=== PATIENT | male | born 1965 ===

== ENCOUNTER 2018-06-07 20:27 | Emergency (ER) | payer SELFPAY ==
--- NOTE | 2018-06-07 20:54 | ED PDOC ---
Arrival/HPI - General Chief Complaint: Alcohol Ingestion Time Seen by Provider: 06/07/18 20:33 - History of Present Illness Narrative History of Present Illness (Text): 06/07/18 20:55 A 52 year old male, whose past medical history includes EtOH abuse, biba to the emergency department for public intoxication. Patient admits to drinking tonight and states he wants to sleep. Patient denies any other complaints at this time. Past Medical History - Provider Review Nursing Documentation Reviewed: Yes - Infectious Disease Hx of Infectious Diseases: None - Psychiatric Hx Substance Use: No - Anesthesia Hx Anesthesia: No Family/Social History - Physician Review Nursing Documentation Reviewed: Yes Family/Social History: No Known Family HX Smoking Status: Never Smoked Hx Alcohol Use: Yes Frequency of alcohol use: Socially Hx Substance Use: No Allergies/Home Meds Allergies/Adverse Reactions: Allergies No Known Allergies Allergy (Verified 06/07/18 20:32) Home Medications: Home Meds Medication Instructions Recorded Confirmed No Known Home Med 06/07/18 06/07/18 Review of Systems - Physician Review All systems were reviewed & negative as marked: Yes - Review of Systems Constitutional: absent: Fevers, Night Sweats Respiratory: absent: SOB Cardiovascular: absent: Chest Pain Physical Exam Appearance: Positive for: Other (intoxicated) Mental Status: Positive for: Alert and Oriented X 3 - Systems Exam Head: Present: Atraumatic, Normocephalic Pupils: Present: PERRL Extroacular Muscles: Present: EOMI Conjunctiva: Present: Normal Mouth: Present: Moist Mucous Membranes Neck: Present: Normal Range of Motion Respiratory/Chest: Present: Clear to Auscultation, Good Air Exchange. No: Respiratory Distress, Accessory Muscle Use Cardiovascular: Present: Regular Rate and Rhythm, Normal S1, S2. No: Murmurs Abdomen: No: Tenderness, Distention, Peritoneal Signs Back: Present: Normal Inspection Upper Extremity: Present: Normal Inspection. No: Cyanosis, Edema Lower Extremity: Present: Normal Inspection. No: Edema Neurological: Present: GCS=15, CN II-XII Intact, Speech Normal Skin: Present: Warm, Dry, Normal Color. No: Rashes Psychiatric: Present: Alert, Oriented x 3, Intoxicated Medical Decision Making ED Course and Treatment: 06/07/18 20:55 Impression: 52 year old male with public intoxication. No acute findings on examination except that patient is intoxicated. Plan: -- Reassess and disposition Progress Notes: 06/07/18 22:19 Patient's family arrived and is ready to bring him home and assume care. - Scribe Statement The provider has reviewed the documentation as recorded by the Scout Monique Provider Scribe Attestation: All medical record entries made by the Scribe were at my direction and personally dictated by me. I have reviewed the chart and agree that the record accurately reflects my personal performance of the history, physical exam, medical decision making, and the department course for this patient. I have also personally directed, reviewed, and agree with the discharge instructions and disposition. Disposition/Present on Arrival - Present on Arrival Any Indicators Present on Arrival: No History of DVT/PE: No History of Uncontrolled Diabetes: No Urinary Catheter: No History of Decub. Ulcer: No History Surgical Site Infection Following: None - Disposition Have Diagnosis and Disposition been Completed?: Yes Diagnosis: Alcohol intoxication Disposition: HOME/ ROUTINE Disposition Time: 22:18 Patient Plan: Discharge Patient Problems: Current Active Problems Problem Status Onset Alcohol intoxication Acute Condition: GOOD Discharge Instructions (ExitCare): Alcohol Abuse and Alcoholism (DC) Referrals: PCP,NO [Primary Care Provider] - Follow up with primary Alcoholics Anonymous [Outside] - Follow up with primary Forms: [employer] (I[place]ic)
[2018-06-07 20:55] VITALS: RESP 18
[2018-06-07 22:33] VITALS: BP 148/89; PULSE 98; TEMP 98.1; O2SAT 98
== END 2018-06-07 22:33 | disposition home or self-care (01) ==
LOC: ED 20:27
DX: F10.129 Alcohol abuse with intoxication, unspecified (principal)